=== PATIENT | male | born 1960 | race Caucasian/White ===

== ENCOUNTER 2016-09-02 18:38 | Emergency (ER) | payer BC, OTHER ==
[2016-09-02] MEDS ORDERED: Oxycodone/Acetaminophen 5/325 mg Tab PO STA (20:26)
[2016-09-02] MEDS ORDERED: Oxycodone/Acetaminophen 5/325 mg Tab ONE (20:52)
[2016-09-02 20:54] LABS: BASO # 0.1 K/uL (0.0-0.2); BASO % 0.7 % (0.0-2.0); EOS # 0.1 K/uL (0.0-0.7); EOS % 1.5 % (0.0-4.0); HEMATOCRIT 49.6 % (35.0-51.0); LYMPH # 2.1 K/uL (1.0-4.3); LYMPH % 21.1 % (20.0-40.0); MEAN CORPUSCULAR HEMOGLOBIN 30.4 pg (27.0-31.0); MEAN CORPUSCULAR HGB CONC 33.7 g/dL (33.0-37.0); MEAN PLATELET VOLUME 9.6 fL (7.2-11.7); MONO # 0.7 K/uL (0.0-0.8); MONO % 6.8 % (0.0-10.0); RED CELL DISTRIBUTION WIDTH 14.2 % (11.5-14.5); WHITE BLOOD COUNT 9.9 K/uL (4.8-10.8)
[2016-09-02 21:04] LABS: CHLORIDE 95 mmol/L (98-107); SODIUM 133 mmol/L (132-148)
--- NOTE | 2016-09-02 21:04 | C.PDOC ---
History Of Present Illness 56 y/o male presents to the emergency department with complains of headache x2 days. Pt states this headache is different from typical unilateral migraine headaches. Pt took 1 Excederin today at 1400 with little relief. Denies vision changes, nausea, vomiting, or any other complaints. Time Seen by Provider: 09/02/16 20:18 Chief Complaint (Nursing): Headache History Per: Patient History/Exam Limitations: no limitations Onset/Duration Of Symptoms: Days Current Symptoms Are (Timing): Still Present Severity: Moderate Quality: "Pain" Preceeding Symptoms: None Associated Symptoms: denies: Photophobia, Blurred Vision, Nausea, Vomiting Recent travel outside of the [place]: No Past Medical History Reviewed: Historical Data, Nursing Documentation, Vital Signs Vital Signs: Last Vital Signs Temp 98.2 F 09/02/16 21:57 Pulse 72 09/02/16 21:57 Resp 16 09/02/16 21:57 BP 150/87 09/02/16 21:57 Pulse Ox 100 09/02/16 21:57 - Medical History PMH: Depression, Diabetes, HTN, Hypercholesterolemia, Hypothyroidism, Migraine Family History: States: Unknown Family Hx - Social History Hx Tobacco Use: No Hx Alcohol Use: No Hx Substance Use: No - Immunization History Hx Tetanus Toxoid Vaccination: No Hx Influenza Vaccination: No Hx Pneumococcal Vaccination: No Review Of Systems Except As Marked, All Systems Reviewed And Found Negative. Constitutional: Negative for: Fever, Chills Eyes: Negative for: Vision Change Gastrointestinal: Negative for: Nausea, Vomiting Neurological: Positive for: Headache Physical Exam - Physical Exam Appears: Non-toxic, In Acute Distress (moderate pain) Skin: Warm, Dry, No Rash Head: Atraumatic, Normacephalic Eye(s): bilateral: Normal Inspection, PERRL, EOMI Neck: Normal, Normal ROM, Supple Chest: Symmetrical Cardiovascular: Rhythm Regular, No Murmur Respiratory: Normal Breath Sounds, No Rales, No Rhonchi, No Wheezing Gastrointestinal/Abdominal: Normal Exam, Soft, No Tenderness Extremity: Bilateral: Atraumatic Neurological/Psych: Oriented x3, Normal Speech, Normal Cognition, Normal Motor, Normal Sensation ED Course And Treatment - Laboratory Results Result Diagrams: 09/02/16 20:48 09/02/16 20:48 Lab Interpretation: Normal (trop neg.) ECG: Interpreted By Hi ECG Rhythm: Sinus Rhythm O2 Sat by Pulse Oximetry: 98 (room air) Pulse Ox Interpretation: Normal - Radiology CXR: Interpreted by Me CXR Interpretation: Yes: No Acute Disease - Other Rad head CT X-Ray: Read By Radiologist (neg) Progress Note: Plan: CT head, EKG, labs, CXR, IV fluids, toradol, percocet, BGL Reevaluation Time: 21:42 Reassessment Condition: Improved Medical Decision Making Medical Decision Making: poorly controlled BP, doubling his meds @ home. increased Amlodipine from 5->10 mg daily. Headache. Tramadol/Motrin/Pepcid. Disposition Doctor Will See Patient In The: Office Counseled Patient/Family Regarding: Studies Performed, Diagnosis - Disposition Referrals: Yessenia Lam MD [Medical Doctor] - Disposition: HOME/ ROUTINE Disposition Time: 21:43 Condition: GOOD Additional Instructions: ibuprofen 600 mg every 6 hours as needed pepcid 20 mg @ night to prevent stomach irritation from the motrin Tramadol 50 mg every 4-6 hours as needed for more severe pain stool softner 2x/day to avoid constipation from the narcotics: Colace 100 mg Increase your Amlodipine from 5 mg to 10 mg daily Take in the morning. Prescriptions: traMADol [Ultram] 50 mg PO Q6H PRN #20 tab PRN Reason: pain Instructions: Acute Headache (ED) - Clinical Impression Clinical Impression: Headache, Uncontrolled hypertension - Scribe Statement The provider has reviewed the documentation as recorded by the Lambert Nails Provider Attestation: All medical record entries made by the Lambert were at my direction and personally dictated by me. I have reviewed the chart and agree that the record accurately reflects my personal performance of the history, physical exam, medical decision making, and the department course for this patient. I have also personally directed, reviewed, and agree with the discharge instructions and disposition.
[2016-09-02 21:06] LABS: ALB/GLOB RATIO 1.3 (1.0-2.1); BILIRUBIN,TOTAL 0.8 mg/dL (0.2-1.3); CARBON DIOXIDE 23 mmol/L (22-30); CHOLESTEROL 248 mg/dL (0-199); GFR AFRICAN-AMERICAN > 60; TOTAL PROTEIN 8.1 g/dL (6.3-8.3)
[2016-09-02 21:07] LABS: ALKALINE PHOSPHATASE 86 U/L (38-126); ALT/SGPT 52 U/L (21-72); AST/SGOT 33 U/L (17-59); BLOOD UREA NITROGEN 14 mg/dL (9-20); CALCIUM 8.8 mg/dl (8.6-10.4); GLUCOSE,RANDOM 154 mg/dL (75-110)
[2016-09-02 21:55] VITALS: BP 150/87; PULSE 72; RESP 16; TEMP 98.2
[2016-09-03 01:04] VITALS: O2SAT 98
--- NOTE | 2016-09-03 10:32 | CT ---
PROCEDURE: CT HEAD WITHOUT CONTRAST. HISTORY: HTN,FREEMAN COMPARISON: None available. TECHNIQUE: Axial computed tomography images were obtained through the head/brain without intravenous contrast. Radiation dose: Total exam DLP = 892.57 mGy-cm. This CT exam was performed using one or more of the following dose reduction techniques: Automated exposure control, adjustment of the mA and/or kV according to patient size, and/or use of iterative reconstruction technique. FINDINGS: HEMORRHAGE: No acute parenchymal, subarachnoid or extra-axial hemorrhage. BRAIN: No mass effect or edema. No atrophy or chronic microvascular ischemic changes. Mild generalized volume loss. VENTRICLES: Unremarkable. No hydrocephalus. CALVARIUM: Unremarkable. PARANASAL SINUSES: Unremarkable as visualized. No significant inflammatory changes. MASTOID AIR CELLS: Unremarkable as visualized. No inflammatory changes. OTHER FINDINGS: None. IMPRESSION: No acute intracranial hemorrhage. Mild generalized volume loss
--- NOTE | 2016-09-03 20:00 | RAD ---
HISTORY: adm COMPARISON: No prior. FINDINGS: LUNGS: Poor inspiration with low lung volumes, mild crowded bronchovascular markings and mild bibasilar atelectasis. PLEURA: No significant pleural effusion identified, no pneumothorax apparent. CARDIOVASCULAR: Normal. OSSEOUS STRUCTURES: Questionable mild levoscoliosis centered in the mid thoracic region versus side bending to the right mid thoracic region. . Mild degenerative changes both acromioclavicular joints. VISUALIZED UPPER ABDOMEN: Normal. OTHER FINDINGS: None. IMPRESSION: Poor inspiration with low lung volumes, mild crowded bronchovascular markings and mild bibasilar atelectasis.
--- NOTE | 2016-09-05 13:03 | CARD ---
APPROVED REPORT EKG Measurement Heart [id number] <Conclusion> Sinus bradycardia Left axis deviation Voltage criteria for left ventricular hypertrophy T wave abnormality, consider lateral ischemia Abnormal ECG
== END 2016-09-02 21:57 | disposition home or self-care (01) ==
LOC: C.ER 18:38
DX: R51 Headache (principal); I10 Essential (primary) hypertension
CPT/HCPCS: 70450; 71010; 80053; 80061; 83036; 84484; 85025; 85610; 85730; 93005; 96374; 99285; J1885

== ENCOUNTER 2018-06-01 09:38 | Outpatient (CLI) | payer BC | END 2018-06-01 09:39 | disposition home or self-care (01) | LOC: C.USIC 09:39 | DX: R42 Dizziness and giddiness (principal) ==